=== PATIENT | male | born 1990 | race Asian ===

== ENCOUNTER 2016-07-12 14:40 | Emergency (ER) | payer MEDICAID, OTHER ==
[2016-07-12 15:00] VITALS: RESP 16
--- NOTE | 2016-07-12 15:26 | EDPHY ---
H & P Stated Complaint: L side back pain x1hr Time Seen by Provider: 07/12/16 15:19 HPI/ROS: CHIEF COMPLAINT: Left-sided back pain from coughing. HISTORY OF PRESENT ILLNESS: The patient is a 26-year-old male who presents with acute left back pain secondary to coughing. He has been sick for the past few weeks with cough, congestion, and intermittent fever. He finished a course of Amoxicillin from Urgent Care and has been feeling better over the past few days. Today while driving he coughed and "felt something move inside me" just under the lower left ribs. He now has left-sided thoracic pain. Patient reports some discomfort present prior to today but was not as bad. The pain gets slightly worse with breathing. No chills, chest pain, shortness of breath, palpitations, vomiting, diarrhea, urinary complaints, headache, lightheadedness. REVIEW OF SYSTEMS: Aside from elements discussed in the HPI, a comprehensive 10-point review of systems was reviewed and is negative. PAST MEDICAL HISTORY: Asthma as a child. SOCIAL HISTORY: Smoker. VITAL SIGNS: Reviewed by me GENERAL: Well-developed, well-nourished, resting comfortably in no respiratory distress. HEENT: Atraumatic. Eyes: No icterus, no injection. Mouth: moist mucous membranes. No erythema or lesions. Neck: supple with no adenopathy. LUNGS: Clear to auscultation bilaterally, no wheezes, rhonchi or rales. CARDIAC: Regular rate and rhythm, no rubs, murmurs or gallops. ABDOMEN: Soft, nontender, nondistended, bowel sounds normal. BACK: TTP along inferior, lateral, lower left rib margin. No crepitus. No CVA tenderness. EXTREMITIES: No trauma. No edema. Range of motion is normal throughout. NEURO: Alert and oriented, grossly nonfocal. SKIN: Warm and dry, no rash. PSYCHIATRIC: Normal mentation, no agitation. Portions of this note were transcribed by a medical research associate. I personally performed a history, physical exam, medical decision making, and confirmed accuracy of information the transcribed note. Source: Patient Exam Limitations: No limitations - Personal History Current Tetanus/Diphtheria Vaccine: Yes Current Tetanus Diphtheria and Acellular Pertussis (TDAP): Yes - Medical/Surgical History Hx Asthma: No Hx Chronic Respiratory Disease: No Hx Diabetes: No Hx Cardiac Disease: No Hx Renal Disease: No Hx Cirrhosis: No Hx Alcoholism: No Hx HIV/AIDS: No Hx Splenectomy or Spleen Trauma: No Other PMH: denies - Social History Smoking Status: Current some day smoker Constitutional: Initial Vital Signs Temperature (C) 36.9 C 07/12/16 14:55 Heart Rate 92 07/12/16 14:55 Respiratory Rate 16 07/12/16 14:55 Blood Pressure 139/89 H 07/12/16 14:55 O2 Sat (%) 95 07/12/16 14:55 O2 Delivery Mode Room Air Allergies/Adverse Reactions: hydrocortisone Allergy (Verified 04/29/16 11:54) Home Medications: Medication Instructions Recorded AZITHROMYCIN [Z-PACK] 250 - 500 mg PO DAILY #6 tab 07/12/16 Benzonatate [Tessalon Pearles (RX)] 100 - 200 mg PO TID PRN #15 cap 07/12/16 Hydrocodone/APAP 5/325 [[place]rell 1 tab PO Q6H PRN #10 tab 07/12/16 5/325 (RX)] Medical Decision Making - Diagnostics Imaging: X-ray of the chest was obtained. I viewed the images myself on the PACS system. My interpretation of the images is: no acute process. The radiologist interpretation is pending at this time. I discussed the x-ray findings with the patient. ED Course/Re-evaluation: Chest x-ray obtained. No pneumonthorax, no effusion, no pneumonia. Suspect musculoskeletal discomfort related to coughing. Patinet PERC negative, will not pursue evaluation for PE. Influenza negative. Looks well. Home post toradol. Differential Diagnosis: After history and physical examination, the differential for chest pain was considered, including but not limited to, PE, pneumonia, pleural effusion, rib fracture, muscles strain. - Data Points Medications Given: Discontinued Medications Ketorolac Tromethamine (Toradol) 60 mg IM EDNOW ONE Stop: 07/12/16 15:30 Last Admin: 07/12/16 15:36 Dose: 60 mg Departure - Departure Disposition: Home, Routine, Self-Care Clinical Impression: Musculoskeletal Discomfort , Cough present for greater than 3 weeks Condition: Good Instructions: Chronic Cough (ED), Chest Wall Pain (ED) Additional Instructions: I recommend Ibuprofen (Motrin,Advil) or Naproxen Sodium (Aleve) for pain and anti-inflammatory effects. You may take either one, but do not take both. Your dose is: Ibuprofen 600mg every 6-8 hours with food. OR Naproxen Sodium (Aleve) 220mg every 12 hours. You may use Tessalon Perles as needed for persistent coughing during the day. You may use hydrocodone as needed for pain control as well as a cough suppressant especially at night. It will make you sleepy. You been given a prescription for azithromycin to use for your persistent cough and cold symptoms and to treat any atypical pneumonia. Follow up with your primary care provider in the next 2-3 days if symptoms are not improving. If you need a primary care provider you were given the telephone number of [facility]. Return to the emergency department if you experience any serious worsening of condition. Referrals: [facility],. [Clinic] - As per Instructions Stand Alone Forms: Work Excuse Prescriptions: AZITHROMYCIN [Z-PACK] 250 - 500 mg PO DAILY #6 tab Benzonatate [Tessalon Pearles (RX)] 100 - 200 mg PO TID PRN #15 cap PRN Reason: cough Hydrocodone/APAP 5/325 [Correll 5/325 (RX)] 1 tab PO Q6H PRN #10 tab PRN Reason: Pain Report Scribed for: Jolanta Phipps Report Scribed by: Yonatan Sepulveda Date of Report: 07/12/16 Time of Report: 15:20
[2016-07-12] MEDS ORDERED: KETOROLAC 30 MG/1 ML SDV IM ONE (15:29)
[2016-07-12 16:36] VITALS: BP 128/82; PULSE 98; TEMP 99.3; O2SAT 96
== END 2016-07-12 16:35 | disposition home or self-care (01) ==
DX: M54.9 Dorsalgia, unspecified (principal); R05 Cough; J45.909 Unspecified asthma, uncomplicated; F17.200 Nicotine dependence, unspecified, uncomplicated
CPT/HCPCS: J1885

== ENCOUNTER 2016-08-06 17:22 | Emergency (ER) | payer MEDICAID ==
--- NOTE | 2016-08-06 17:49 | CPEKG ---
Heart Rate: 109 RR Interval: 550 P-R Interval: 128 QRSD Interval: 90 QT Interval: 324 QTC Interval: 437 P [place]: 44 QRS [place]: -20 T Wave [place]: 27 EKG Severity - OTHERWISE NORMAL ECG - EKG Impression: SINUS TACHYCARDIA EKG Impression: BORDERLINE LEFT AXIS DEVIATION Electronically Signed By: Hunter Menard 06-Aug-2016 21:02:56
--- NOTE | 2016-08-06 17:57 | EDPHY ---
H & P Time Seen by Provider: 08/06/16 17:49 HPI/ROS: CHIEF COMPLAINT: Left-sided chest pain HISTORY OF PRESENT ILLNESS: 26-year-old male presents with left-sided chest pain. Onset of chest pain yesterday morning. The pain occurs with movement and with coughing. No exertional chest pain. He developed URI symptoms 6 weeks ago and still has a lingering cough. He used cocaine 2 nights ago. REVIEW OF SYSTEMS: Constitutional: No fever, no chills Eyes: No visual changes ENT: No sore throat Respiratory: no shortness of breath Gastrointestinal: No nausea, no vomiting, no abdominal pain Genitourinary: no dysuria Musculoskeletal: No leg pain or swelling Skin: No rash Neurological: No headache, no weakness Psychiatric: No depression Past Medical/Surgical History: He denies Social History: No recent alcohol Smoking Status: Current some day smoker Physical Exam: General Appearance: The alert, pleasant Eyes: Pupils equal and round, no conjunctival pallor or injection ENT, Mouth: Mucous membranes moist Neck: Normal inspection Respiratory: Lungs are clear to auscultation, left anterior chest wall tenderness Cardiovascular: Regular rate and rhythm Gastrointestinal: Abdomen is soft and nontender Neurological: A&O, nonfocal, normal gait Skin: Warm and dry, no rash Extremities: Nontender, no pedal edema Psychiatric: Mood and affect normal Constitutional: Initial Vital Signs Temperature (C) 37.1 C 08/06/16 17:29 Heart Rate 109 H 08/06/16 17:29 Respiratory Rate 14 08/06/16 17:29 Blood Pressure 126/86 H 08/06/16 17:29 O2 Sat (%) 97 08/06/16 17:29 O2 Delivery Mode Room Air Allergies/Adverse Reactions: hydrocortisone Allergy (Verified 04/29/16 11:54) Home Medications: Medication Instructions Recorded AZITHROMYCIN [Z-PACK] 250 - 500 mg PO DAILY #6 tab 07/12/16 Benzonatate [Tessalon Pearles (RX)] 100 - 200 mg PO TID PRN #15 cap 07/12/16 Hydrocodone/APAP 5/325 [[place] 1 tab PO Q6H PRN #10 tab 07/12/16 5/325 (RX)] Medical Decision Making - Diagnostics EKG Interpretation: EKG interpreted by me reveals sinus tachycardia, rate 109, no ST or T segment changes. Imaging: Chest x-ray independently reviewed by me reveals no acute disease. ED Course/Re-evaluation: This patient presents with atypical and prolonged chest pain. After careful consideration and evaluation, I find no evidence of acute coronary syndrome. The patient has prolonged and atypical pain, normal EKG and normal studies. In addition, I feel that I can safely exclude pulmonary embolism, with normal vital signs, normal oxygen saturation and normal studies. In addition there is no evidence of pneumothorax, pneumonia, aortic dissection. - Data Points Laboratory Results: Laboratory Results 08/06/16 17:50 08/06/16 17:50 08/06/16 08/06/16 17:50 17:50 WBC 10.73 10^3/uL H 10^3/uL (3.80-9.50) RBC 5.65 10^6/uL 10^6/uL (4.40-6.38) Hgb 16.1 g/dL g/dL (13.7-17.5) Hct 49.3 % % (40.0-51.0) MCV 87.3 fL fL (81.5-99.8) MCH 28.5 pg pg (27.9-34.1) MCHC 32.7 g/dL g/dL (32.4-36.7) RDW 14.0 % % (11.5-15.2) Plt Count 247 10^3/uL 10^3/uL (150-400) MPV 9.9 fL fL (8.7-11.7) Neut % (Auto) 75.6 % H % (39.3-74.2) Lymph % (Auto) 17.2 % % (15.0-45.0) [place] % (Auto) 5.8 % % (4.5-13.0) Eos % (Auto) 0.7 % % (0.6-7.6) Baso % (Auto) 0.4 % % (0.3-1.7) Nucleat RBC Rel Count 0.0 % % (0.0-0.2) Absolute Neuts (auto) 8.12 10^3/uL H 10^3/uL (1.70-6.50) Absolute Lymphs (auto) 1.85 10^3/uL 10^3/uL (1.00-3.00) Absolute Monos (auto) 0.62 10^3/uL 10^3/uL (0.30-0.80) Absolute Eos (auto) 0.07 10^3/uL 10^3/uL (0.03-0.40) Absolute Basos (auto) 0.04 10^3/uL 10^3/uL (0.02-0.10) Absolute Nucleated RBC 0.00 10^3/uL 10^3/uL (0-0.01) Immature Gran % 0.3 % % (0.0-1.1) Immature Gran # 0.03 10^3/uL 10^3/uL (0.00-0.10) Sodium 141 mEq/L mEq/L (134-144) Potassium 4.9 mEq/L mEq/L (3.5-5.2) Chloride 105 mEq/L mEq/L (97-110) Carbon Dioxide 21 mEq/l L mEq/l (22-31) Anion Gap 15 mEq/L mEq/L (8-16) BUN 20 mg/dL mg/dL (7-23) Creatinine 1.0 mg/dL mg/dL (0.7-1.3) Estimated GFR > 60 Glucose 91 mg/dL mg/dL (70-100) Calcium 9.7 mg/dL mg/dL (8.5-10.4) Troponin I < 0.012 ng/mL ng/mL (0-0.034) Specimen Hemolysis 143 Departure - Departure Disposition: Home, Routine, Self-Care Clinical Impression: Chest pain Qualifiers: Chest pain type: other chest pain Qualified Code(s): R07.89 - Other chest pain Condition: Good Instructions: Chest Pain (ED) Additional Instructions: Avoid cocaine. Ibuprofen 600 mg 3 times daily while the pain persists. Referrals: Valerio Watt MD [Medical Doctor] - 2-3 days, if not improved
[2016-08-06 18:01] LABS: % IMMATURE GRANULYOCYTES 0.3 % (0.0-1.1); ABSOLUTE IMMATURE GRANULOCYTES 0.03 10^3/uL (0.00-0.10); ADD DIFF? NO; ADD MORPH? NO; ADD SCAN? NO; ATYPICAL LYMPHOCYTE FLAG 0 (0-99); FRAGMENT RBC FLAG 0 (0-99); HEMATOCRIT 49.3 % (40.0-51.0); HEMOGLOBIN 16.1 g/dL (13.7-17.5); LEFT SHIFT FLG 0 (0-99); LIPEMIA HEMOLYSIS FLAG 80 (0-99); MEAN CELL HEMOGLOBIN 28.5 pg (27.9-34.1); MEAN CELL HEMOGLOBIN CONCENTR. 32.7 g/dL (32.4-36.7); MEAN CELL VOLUME 87.3 fL (81.5-99.8); MEAN PLATELET VOLUME 9.9 fL (8.7-11.7); PLATELET CLUMPS FLAG 0 (0-99); PLATELET COUNT 247 10^3/uL (150-400); RED BLOOD CELL COUNT 5.65 10^6/uL (4.40-6.38)
[2016-08-06 18:17] LABS: ANION GAP 15 mEq/L (8-16); CALCIUM 9.7 mg/dL (8.5-10.4); CARBON DIOXIDE 21 mEq/l (22-31); CHLORIDE 105 mEq/L (97-110); GLOMERULAR FILTRATION RATE > 60; GLUCOSE 91 mg/dL (70-100); POTASSIUM 4.9 mEq/L (3.5-5.2); SODIUM 141 mEq/L (134-144); SPECIMEN HEMOLYSIS 143
[2016-08-06 18:29] LABS: TROPONIN I < 0.012 ng/mL (0-0.034)
[2016-08-06 19:04] VITALS: BP 136/74; PULSE 85; RESP 16; TEMP 97; O2SAT 97
== END 2016-08-06 19:04 | disposition home or self-care (01) ==
DX: R07.89 Other chest pain (principal); F17.200 Nicotine dependence, unspecified, uncomplicated